=== PATIENT | female | born 1940 | race Caucasian/White ===

== ENCOUNTER → 2019-01-12 | Outpatient (CLI) | payer MEDICARE, BC ==
--- NOTE | 2019-01-12 16:51 | BD ---
EXAMINATION TYPE: Axial Bone Density DATE OF EXAM: 01/12/2019 COMPARISON: NONE CLINICAL HISTORY: Height: 5 FT 6 IN Weight: 176 FRAX RISK QUESTIONS: RISK FACTORS HISTORY OF: Surgery to Spine/Hip(right/left)/Wrist (right/left): CARPAL TUNNEL RT WRIST 2 YEARS AGO Active: NO Postmenopausal woman: TOTAL HYST AGE 56 MEDICATIONS: Additional Medications: ANASTROZOLE, JANUMET, GLIMEPERIDE, OMEPRAZOLE, KRILL OIL, PREVASTATIN, LISINO PRIL, Additional History: BREAST CANCER 2018 MASTECTOMY SEP 2018 EXAM MEASUREMENTS: Bone mineral densitometry was performed using the [employer] System. Bone mineral density as measured about the Lumbar spine is: ----- L1-L4(G/cm2): 1.471 T Score Values are as follows: ----- L2: 2.4 ----- L3: 3.7 ----- L4: 1.6 ----- L1-L4: 2.4 Bone mineral density has: DECREASED -1.2 % since study of: 2014 Bone mineral density about the R hip (g/cm2): 0.894 Bone mineral density about the L hip (g/cm2): 0.900 T Score values are as follows: -----R Neck: 0.0 -----L Neck: 0.0 -----R Total: -0.6 -----L Total: -0.1 Bone mineral density has: DECREASED -4.6 % since study of: 2014 IMPRESSION: Normal (Values between +1 and -1 indicate normal bone mass). Consider repeating this study in 5 year s or sooner if there is some new clinical indication. NOTE: T-SCORE=SD OF THE YOUNG ADULT MEAN.
== END | disposition home or self-care (01) ==
LOC: RADBDWWP 14:46
PROVIDERS: ATTEND Internal Medicine Hematology & Oncology
DX: C50.511 Malignant neoplasm of lower-outer quadrant of right female breast (principal); Z79.83 Long term (current) use of bisphosphonates
CPT/HCPCS: 77080

== ENCOUNTER → 2022-08-17 | Outpatient (CLI) | payer MEDICARE, BC ==
--- NOTE | 2022-08-17 13:56 | BD ---
EXAMINATION TYPE: Axial Bone Density DATE OF EXAM: 08/17/2022 COMPARISON: 01-12-19 CLINICAL HISTORY: 81 years year old Female. ICD-10 CODE: Z13.820 ENCOUNTER FOR SCREENING FOR OSTEOPO SAVANNAH Height: 66in Weight: 174lb FRAX RISK QUESTIONS: Secondary Osteoporosis: RISK FACTORS HISTORY OF: Active: FAIR Postmenopausal woman: YES MEDICATIONS: Additional Medications: DIABETIC MED, GLIMEPERIDE, BP MED, CHOLESTEROL MED Additional History: BREAST CANCER 2019, COLITIS EXAM MEASUREMENTS: Bone mineral densitometry was performed using the [employer] System. Bone mineral density as measured about the Lumbar spine is: ----- L1-L4(G/cm2): 1.524 T Score Values are as follows: ----- L1: 2.1 ----- L2: 2.7 ----- L3: 3.9 ----- L4: 2.7 ----- L1-L4: 2.9 Bone mineral density has: Increased 4.6% since study of: 01-12-19 Bone mineral density about the R hip (g/cm2): 0.900 Bone mineral density about the L hip (g/cm2): 0.937 T Score values are as follows: -----R Neck: -1.4 -----L Neck: -1.3 -----R Total: -0.9 -----L Total: -0.6 Bone mineral density has: Decreased 4.9% since study of: 01-12-19 FRAX%s: The graph provided illustrates a 4.0% chance for a major osteoporotic fx and a 1.2% chance fo r the hips probability for fx in 10 years time. IMPRESSION: Osteopenia (T Score between -2.5 and -1). There is slightly increased risk of fracture and the patient may be considered for treatment. Re-Screen 2-5 years. NOTE: T-SCORE=SD OF THE YOUNG ADULT MEAN.
== END | disposition home or self-care (01) ==
LOC: RADBDWWP 13:16
PROVIDERS: ATTEND Family Medicine
DX: Z13.820 Encounter for screening for osteoporosis (principal); M85.89 Other specified disorders of bone density and structure, multiple sites
CPT/HCPCS: 77080